=== PATIENT | female | born 1990 | race Caucasian/White ===

== ENCOUNTER 2017-09-30 14:53 | Inpatient (IN) | payer OTHER ==
[2017-09-30 15:41] VITALS: BMI 28.8
--- NOTE | 2017-09-30 16:59 | HP ---
COWS - Scale Resting Pulse: 2= [place] 101-120 Sweatin= Chills/Flushing Restless Observation: 1= Difficult to Sit Still Pupil Size: 0= Normal to Room Light Bone or Joint Aches: 1= Mild Discomfort Runny Nose/ Eye Tearin= Nasal Congestion GI Upset > 30mins: 1= Stomach Cramp Tremor Observation: 2= Slight Tremor Visible Yawning Observation: 0= None Anxiety or Irritability: 2=Irritable/Anxious Goose Flesh Skin: 3=Piloerection COWS Score: 14 Admission ROS S - HPI Chief Complaint: withdrawal sx first detox Allergies/Adverse Reactions: Allergies Allergy/AdvReac Type Severity Reaction Status Date / Time No Known Allergies Allergy Verified 09/30/17 16:53 History of Present Illness: 27 years old female with long history of opiate nicotine dependence has depression is admitted to detox Exam Limitations: No Limitations - Ebola screening Have you traveled outside of the country in the last 21 days: No Have you had contact with anyone from an Ebola affected area: No Have you been sick,other than usual withdrawal symptoms: No Do you have a fever: No - Review of Systems Constitutional: Changes in sleep, Weight Stable EENT: reports: Nose Congestion Respiratory: reports: No Symptoms reported Cardiac: reports: No Symptoms Reported GI: reports: Nausea, Poor Fluid Intake, Abdominal cramping : reports: No Symptoms Reported Musculoskeletal: reports: No Symptoms Reported Integumentary: reports: No Symptoms Reported Neuro: reports: Tremors Endocrine: reports: No Symptoms Reported Hematology: reports: No Symptoms Reported Psychiatric: reports: Judgement Intact, Orientated x3, Anxious, Depressed Other Systems: Reviewed and Negative Patient History - Patient Medical History Hx Anemia: No Hx Asthma: No Hx Chronic Obstructive Pulmonary Disease (COPD): No Hx Cancer: No Hx Cardiac Disorders: No Hx Congestive Heart Failure: No Hx Hypertension: No Hx Hypercholesterolemia: No Hx Pacemaker: No HX Cerebrovascular Accident: No Hx Seizures: No Hx Dementia: No Hx Diabetes: No Hx Gastrointestinal Disorders: No Hx Sexually Transmitted Disorders: No Hx Renal Disease (ESRD): No Hx Thyroid Disease: No Hx Human Immunodeficiency Virus (HIV): No Hx Hepatitis C: No Hx Depression: Yes Hx Suicide Attempt: No Hx Bipolar Disorder: No Hx Schizophrenia: No - Patient Surgical History Past Surgical History: Yes Hx Neurologic Surgery: No Hx Cataract Extraction: No Hx Cardiac Surgery: No Hx Lung Surgery: No Hx Breast Surgery: No Hx Breast Biopsy: No Hx Abdominal Surgery: Yes (gastric bypass 2006) Hx Appendectomy: No Hx Cholecystectomy: Yes (2011) Hx Genitourinary Surgery: No Hx Section: No Hx Orthopedic Surgery: No Hx Hysterectomy: No Other Surgical History: tuberligation 2011 Anesthesia Reaction: No - PPD History Previous Implant?: Yes Documented Results: Negative w/o proof Implanted On Prior [facility] Admission?: No PPD to be Administered?: Yes - Reproductive History Patient is a Female of Child Bearing Age (11 -55 yrs old): Yes Last Menstrual Period: 09/11/17 Patient : No - Smoking Cessation Smoking history: Current every day smoker Have you smoked in the past 12 months: Yes Aproximately how many cigarettes per day: 10 Cigars Per Day: 0 Hx Chewing Tobacco Use: No Initiated information on smoking cessation: Yes 'Breaking Loose' booklet given: 09/30/17 - Substance & Tx. History Hx Alcohol Use: No Hx Substance Use: Yes Substance Use Type: Opiates, Tranquilizers Hx Substance Use Treatment: No (first detox) - Substances Abused Oxycontin Route: Oral Family Disease History - Family Disease History Family Disease History: Diabetes: Mother, Heart Disease: Father Admission Physical Exam BHS - Vital Signs Vital Signs: Vital Signs - 24 hr 09/30/17 15:36 Temperature 98.8 F Pulse Rate 110 H Respiratory 18 Rate Blood Pressure 136/96 - Physical General Appearance: Yes: Appropriately Dressed, Mild Distress, Obese, Tremorous , Irritable, Sweating, Anxious HEENTM: Yes: Hearing grossly Normal, Normal ENT Inspection, Normocephalic, Normal Voice Respiratory: Yes: Chest Non-Tender, Lungs Clear, Normal Breath Sounds, No Respiratory Distress, No Accessory Muscle Use Neck: Yes: Supple, Trachea in good position Breast: Yes: Breasts Symetrical Cardiology: Yes: Regular Rhythm, S1, S2, Tachycardia Abdominal: Yes: Normal Bowel Sounds, Non Tender, Soft Genitourinary: Yes: Within Normal Limits Back: Yes: Normal Inspection Musculoskeletal: Yes: full range of Motion, Gait Steady Extremities: Yes: Normal Inspection, Normal Range of Motion, Non-Tender, Tremors Neurological: Yes: Fully Oriented, Alert, Motor Strength 5/5, Normal Response, Depressed Affect Integumentary: Yes: Warm Lymphatic: Yes: Within Normal Limits - Diagnostic (1) Opioid dependence with withdrawal Current Visit: Yes Status: Acute (2) Nicotine dependence Current Visit: Yes Status: Acute Qualifiers: Nicotine product type: cigarettes Substance use status: in withdrawal Qualified Code(s): F17.213 - Nicotine dependence, cigarettes, with withdrawal (3) GERD (gastroesophageal reflux disease) Current Visit: Yes Status: Chronic Qualifiers: Esophagitis presence: without esophagitis Qualified Code(s): K21.9 - Gastro -esophageal reflux disease without esophagitis Cleared for Admission [facility] - Detox or Rehab [facility] Level of Care: Medically Managed Detox Regimen/Protocol: Methadone [facility] Breath Alcohol Content Breath Alcohol Content: 0 Urine Pregancy Test - Result Urine Test Results: Negative- NO Line Present Urine Drug Screen - Results Drug Screen Negative: No Urine Drug Screen Results: BZO-Benzodiazepines, TCA-Tricyclic Antidepress, OXY- Oxycodone
[2017-09-30] MEDS ORDERED: MAGNESIUM CITRATE 300 ML BOTTLE PO PRN (17:12)
[2017-09-30] MEDS ORDERED: MENTHOL/PHENOL 1 EACH UD MM PRN (17:12)
[2017-09-30] MEDS ORDERED: MAG HYDROX/AL HYDROX/SIMETH 30 ML UNIT-DOSE CUP PO PRN (17:12)
[2017-09-30] MEDS ORDERED: guaiFENesin/D-METHORPHAN HB 10 ML UNIT-DOSE CUPS PO PRN (17:12)
[2017-09-30] MEDS ORDERED: NICOTINE POLACRILEX 2 MG GUM BC PRN (17:12)
[2017-09-30] MEDS ORDERED: IBUPROFEN 400 MG TABLET (FP) PO PRN (17:12)
[2017-09-30] MEDS ORDERED: P-EPHED 60MG/TRIPROLIDI 2.5MG TABLET PO PRN (17:12)
[2017-09-30] MEDS ORDERED: MAGNESIUM HYDROX 2400MG/30ML ORAL SUSPENSION 30 ML CUP PO PRN (17:12)
[2017-09-30] MEDS ORDERED: LOPERAMIDE HCL 2 MG CAPSULE PO PRN (17:12)
[2017-09-30] MEDS ORDERED: METHADONE HCL 10 MG TABLET (FOR DETOX USE ONLY) PO ONE ×2 (19:00→23:00)
[2017-09-30] MEDS: cloNIDine HCL 0.1 MG TABLET PO PRN (19:35)
[2017-09-30] MEDS: diazePAM 5 MG TABLET PO PRN ×2 (19:35→23:34)
[2017-09-30] MEDS: ACETAMINOPHEN 325 MG TABLET (FP) PO PRN (20:34)
--- NOTE | 2017-09-30 20:52 | EKG ---
Test Reason : Blood Pressure : / mmHG Vent. Rate : 086 BPM Atrial Rate : 086 BPM P-R Int : 154 ms QRS Dur : 078 ms QT Int : 360 ms P-R-T Axes : 059 069 032 degrees QTc Int : 430 ms NORMAL SINUS RHYTHM POSSIBLE LEFT ATRIAL ENLARGEMENT BORDERLINE ECG NO PREVIOUS ECGS AVAILABLE Confirmed by MD JACLYN, ZAYDA ([id number]) on 09/30/2017 8:51:37 PM Referred By: Confirmed By:ZAYDA ANAYA MD
[2017-09-30] MEDS: THIAMINE HCL 100 MG TABLET (FP) PO SCH (22:20)
[2017-09-30] MEDS: RANITIDINE HCL 150 MG TABLET (FP) PO SCH (22:20)
[2017-09-30] MEDS ORDERED: hydrOXYzine PAMOATE 25 MG CAPSULE (FP) PO ONE (22:24)
[2017-10-01 01:32] LABS: URINE APPEARANCE CLOUDY; URINE BILIRUBIN NEGATIVE (NEGATIVE); URINE BLOOD NEGATIVE (NEGATIVE); URINE GLUCOSE (UA) NEGATIVE (NEGATIVE); URINE KETONE 1+ (NEGATIVE); URINE LEUK ESTERASE NEGATIVE (NEGATIVE); URINE NITRITE NEGATIVE (NEGATIVE)
[2017-10-01 01:45] LABS: URINE PROTEIN 1+ (NEGATIVE)
[2017-10-01 01:46] LABS: URINE COLOR YELLOW
[2017-10-01 01:56] LABS: URINE HYALINE CAST 2 /lpf; URINE MUCUS MANY; URINE RBC 24 /hpf (0-3); URINE WBC 3 /hpf (3-5)
[2017-10-01] MEDS: diazePAM 5 MG TABLET PO PRN ×3 (05:40→22:17)
--- NOTE | 2017-10-01 07:31 | CONSULT ---
[facility] Psychiatric Consult - Data Date of interview: 10/01/17 Admission source: [facility] Identifying data: This is 27 years old female with history of psychiatriuc hospitalization iontoxicated with: Opioids and Nicotine Substance Abuse History: - Smoking Cessation. Smoking history: Current every day smoker. Have you smoked in the past 12 months: Yes. Aproximately how many cigarettes per day: 10. Cigars Per Day: 0. Hx Chewing Tobacco Use: No. Initiated information on smoking cessation: Yes. 'Breaking Loose' booklet given : 09/30/17. - Substance & Tx. History. Hx Alcohol Use: No. Hx Substance Use: Yes. Substance Use Type: Opiates, Tranquilizers. Hx Substance Use Treatment: No (first detox). - Substances Abused. Oxycontin. Route: Oral Medical History: GERD Psychiatric History: Patient reports history of depression and anxiety, reports taking prior to admission: Zoloft 100mg po qhs. Wellbutrin XL 300mg poqd Physical/Sexual Abuse/Trauma History: Denies Additional Comment: Zoloft 100mg po qhs. Wellbutrin XL 300mg poqd Mental Status Exam - Mental Status Exam Alert and Oriented to: Person Cognitive Function: Fair Patient Appearance: Unkempt Mood: Anxious Affect: Mood Congruent Patient Behavior: Cooperative Voice Loudness: Mildly Soft/Quiet Thought Process: Circumstantial, Goal Oriented Thought Disorder: Being Controlled Hallucinations: Denies Suicidal Ideation: Denies Homicidal Ideation: Denies Insight/Judgement: Fair Sleep: Difficulty falling asleep Appetite: Weight gain Muscle strength/Tone: Normal Gait/Station: Shuffling Additional Comments: Zoloft 100mg po qhs. Wellbutrin XL 300mg poqd Psychiatric Findings - Problem List ([place] 1, 2,3) (1) Drug-induced mood disorder Current Visit: Yes Status: Acute (2) Nicotine dependence Current Visit: Yes Status: Acute Qualifiers: Nicotine product type: cigarettes Substance use status: in withdrawal Qualified Code(s): F17.213 - Nicotine dependence, cigarettes, with withdrawal (3) Opioid dependence with withdrawal Current Visit: Yes Status: Acute (4) GERD (gastroesophageal reflux disease) Current Visit: Yes Status: Chronic Qualifiers: Esophagitis presence: without esophagitis Qualified Code(s): K21.9 - Gastro -esophageal reflux disease without esophagitis - Initial Treatment Plan Initial Treatment Plan: Zoloft 100mg po qhs. Wellbutrin XL 300mg poqd. [id number] 100mg po stat
[2017-10-01] MEDS ORDERED: SERTRALINE HCL 50 MG TABLET (FP) PO STA (08:02)
[2017-10-01 09:03] LABS: URINE LEUK ESTERASE Negative (NEGATIVE)
[2017-10-01] MEDS ORDERED: METHADONE HCL 10 MG TABLET (FOR DETOX USE ONLY) PO ONE (10:00)
[2017-10-01 10:05] LABS: MCH 28.1 pg (25.7-33.7); MCHC 31.8 g/dl (32.0-36.0); MEAN CELL VOLUME 88.2 fl (80-96); PLATELET COUNT 388 K/MM3 (134-434); RDW 15.5 % (11.6-15.6); WHITE BLOOD COUNT 5.8 K/mm3 (4.0-10.0)
--- NOTE | 2017-10-01 10:19 | PN ---
BHS COWS - Scale Resting Pulse: 0= [place] 80 or Below Sweatin=Flushed/Facial Moisture Restless Observation: 1= Difficult to Sit Still Pupil Size: 1= Pupils >than Normal Bone or Joint Aches: 1= Mild Discomfort Runny Nose/ Eye Tearin= Nasal Congestion GI Upset > 30mins: 1= Stomach Cramp Tremor Observation of Outstretched Hands: 1= Tremor Moosic, Not Seen Yawning Observation: 1= 1-2x During Session Anxiety or Irritability: 2=Irritable/Anxious Goose Flesh Skin: 0=Smooth Skin COWS Score: 11 BHS Progress Note (SOAP) Subjective: interrupted sleep, sweats, anxiety Objective: 10/01/17 10:16 Vital Signs Temperature 98.2 F 10/01/17 06:05 Pulse Rate 61 10/01/17 06:05 Respiratory Rate 16 10/01/17 06:05 Blood Pressure 124/70 10/01/17 06:05 O2 Sat by Pulse Oximetry (%) Laboratory Tests 09/30/17 10/01/17 23:40 07:00 WBC 5.8 RBC 4.14 Hgb 11.6 Hct 36.5 MCV 88.2 MCH 28.1 MCHC 31.8 L RDW 15.5 Plt Count 388 MPV 8.0 Urine Color Yellow Urine Appearance Cloudy Urine pH 5.0 Ur Specific [place] 1.029 Urine Protein 1+ H Urine Glucose (UA) Negative Urine Ketones 1+ H Urine Blood Negative Urine Nitrite Negative Urine Bilirubin Negative Urine Urobilinogen 2.0 H Ur Leukocyte Esterase Negative Urine WBC (Auto) 3 Urine RBC (Auto) 24 Ur Epithelial Cells Many Hyaline Casts 2 Urine Mucus Many pt aox3 in nad ambulating , anxious Assessment: 10/01/17 10:19 withdrawal sx's Plan: cont. detox increase fluids reassurance
[2017-10-01] MEDS: RANITIDINE HCL 150 MG TABLET (FP) PO SCH ×2 (10:28→22:17)
[2017-10-01] MEDS: PRENATAL VITAMINS W/ FOLIC ACID TABLET (FP) PO SCH (10:28)
[2017-10-01] MEDS: NICOTINE 14 MG/24 HOURS TOPICAL PATCH TD SCH (10:29)
[2017-10-01 10:32] LABS: ALBUMIN 3.3 g/dl (3.4-5.0); ALK PHOS 151 U/L (45-117); ANION GAP 10 (8-16); BILIRUBIN,TOTAL 0.8 mg/dL (0.2-1.0); CO2 23 mmol/L (21-32); CREATININE 0.7 mg/dL (0.55-1.02); GLUCOSE,RANDOM 83 mg/dL (74-106); SGOT/AST 13 U/L (15-37); SGPT/ALT 33 U/L (12-78); TOT PROT 6.8 g/dl (6.4-8.2)
[2017-10-01] MEDS ORDERED: diazePAM 5 MG TABLET PO ONE (12:02)
[2017-10-01 12:20] LABS: HIV 1 & 2 AB NEGATIVE; HIV 1 AGp24 NEGATIVE
[2017-10-01] MEDS: SERTRALINE HCL 50 MG TABLET (FP) PO SCH (22:16)
[2017-10-01] MEDS: THIAMINE HCL 100 MG TABLET (FP) PO SCH (22:17)
[2017-10-01] MEDS: cloNIDine HCL 0.1 MG TABLET PO PRN (22:17)
[2017-10-02] MEDS ORDERED: METHADONE HCL 5 MG TABLET (FOR DETOX USE ONLY) PO ONE (10:00)
[2017-10-02] MEDS: RANITIDINE HCL 150 MG TABLET (FP) PO SCH ×2 (10:18→22:24)
[2017-10-02] MEDS: PRENATAL VITAMINS W/ FOLIC ACID TABLET (FP) PO SCH (10:18)
[2017-10-02] MEDS: NICOTINE 14 MG/24 HOURS TOPICAL PATCH TD SCH (10:18)
--- NOTE | 2017-10-02 10:50 | PN ---
S COWS - Scale Resting Pulse: 1= [place] 81-100 Sweatin= Chills/Flushing Restless Observation: 1= Difficult to Sit Still Pupil Size: 1= Pupils >than Normal Bone or Joint Aches: 1= Mild Discomfort Runny Nose/ Eye Tearin= Nasal Congestion GI Upset > 30mins: 2= Nausea/Diarrhea Tremor Observation of Outstretched Hands: 2= Slight Tremor Visible Yawning Observation: 1= 1-2x During Session Anxiety or Irritability: 2=Irritable/Anxious Goose Flesh Skin: 3=Piloerection COWS Score: 16 BHS Progress Note (SOAP) Subjective: nausea, sweats, interrupted sleep, anxiety, tremors Objective: 10/02/17 10:49 Vital Signs - 24 hr 10/01/17 10/01/17 10/01/17 11:03 13:06 16:51 Temperature 97.9 F 98.1 F 98.1 F Pulse Rate 112 H 108 H 77 Respiratory 18 16 20 Rate Blood Pressure 130/89 127/69 104/61 10/01/17 10/02/17 10/02/17 22:04 00:30 03:30 Temperature 98.4 F Pulse Rate 96 H Respiratory 18 18 18 Rate Blood Pressure 122/85 10/02/17 10/02/17 06:19 09:21 Temperature 97.9 F 97.7 F Pulse Rate 75 85 Respiratory 18 18 Rate Blood Pressure 97/56 110/61 Laboratory Tests 09/30/17 10/01/17 10/01/17 23:40 07:00 07:00 WBC 5.8 RBC 4.14 Hgb 11.6 Hct 36.5 MCV 88.2 MCH 28.1 MCHC 31.8 L RDW 15.5 Plt Count 388 MPV 8.0 Sodium 142 Potassium 3.9 Chloride 109 H Carbon Dioxide 23 Anion Gap 10 BUN 10 Creatinine 0.7 Creat Clearance w eGFR > 60 Random Glucose 83 Calcium 9.0 Total Bilirubin 0.8 AST 13 L ALT 33 Alkaline Phosphatase 151 H Total Protein 6.8 Albumin 3.3 L Urine Color Yellow Urine Appearance Cloudy Urine pH 5.0 Ur Specific [place] 1.029 Urine Protein 1+ H Urine Glucose (UA) Negative Urine Ketones 1+ H Urine Blood Negative Urine Nitrite Negative Urine Bilirubin Negative Urine Urobilinogen 2.0 H Ur Leukocyte Esterase Negative Urine WBC (Auto) 3 Urine RBC (Auto) 24 Ur Epithelial Cells Many Hyaline Casts 2 Urine Mucus Many RPR Titer HIV 1&2 Antibody Screen HIV P24 Antigen 10/01/17 10/01/17 07:00 08:00 WBC RBC Hgb Hct MCV MCH MCHC RDW Plt Count MPV Sodium Potassium Chloride Carbon Dioxide Anion Gap BUN Creatinine Creat Clearance w eGFR Random Glucose Calcium Total Bilirubin AST ALT Alkaline Phosphatase Total Protein Albumin Urine Color Urine Appearance Urine pH Ur Specific [place] Urine Protein Urine Glucose (UA) Urine Ketones Urine Blood Urine Nitrite Urine Bilirubin Urine Urobilinogen Ur Leukocyte Esterase Urine WBC (Auto) Urine RBC (Auto) Ur Epithelial Cells Hyaline Casts Urine Mucus RPR Titer Nonreactive HIV 1&2 Antibody Screen Negative HIV P24 Antigen Negative Assessment: 10/02/17 10:49 withdrawal sx - cont detox, fluids, low alb/malnutirtiion 2/2 substance use dietary counseling provided with review of labs
[2017-10-02] MEDS: diazePAM 5 MG TABLET PO PRN ×3 (12:06→21:10)
[2017-10-02] MEDS: cloNIDine HCL 0.1 MG TABLET PO PRN (21:10)
[2017-10-02] MEDS: THIAMINE HCL 100 MG TABLET (FP) PO SCH (22:23)
[2017-10-02] MEDS: SERTRALINE HCL 50 MG TABLET (FP) PO SCH (22:24)
[2017-10-03] MEDS: diazePAM 5 MG TABLET PO PRN ×3 (02:14→14:24)
[2017-10-03] MEDS: ACETAMINOPHEN 325 MG TABLET (FP) PO PRN (02:14)
[2017-10-03] MEDS ORDERED: LIDOCAINE VISCOUS 2% ORAL/TOP 20 ML UNIT-DOSE CUP MM PRN (02:22)
[2017-10-03] MEDS ORDERED: METHADONE HCL 5 MG TABLET (FOR DETOX USE ONLY) PO ONE (10:00)
[2017-10-03] MEDS: PRENATAL VITAMINS W/ FOLIC ACID TABLET (FP) PO SCH (10:26)
[2017-10-03] MEDS: RANITIDINE HCL 150 MG TABLET (FP) PO SCH ×2 (10:26→22:22)
[2017-10-03] MEDS: NICOTINE 14 MG/24 HOURS TOPICAL PATCH TD SCH (10:27)
--- NOTE | 2017-10-03 10:50 | PN ---
BHS Progress Note (SOAP) Subjective: sweats irritable agitation Objective: 10/03/17 10:50 Vital Signs Temperature 98.1 F 10/03/17 09:58 Pulse Rate 66 10/03/17 09:58 Respiratory Rate 18 10/03/17 09:58 Blood Pressure 111/67 10/03/17 09:58 O2 Sat by Pulse Oximetry (%) aaox3 ambulating no acute distress Assessment: 10/03/17 10:50 withdrawal sx Plan: continue detox
[2017-10-03] MEDS: THIAMINE HCL 100 MG TABLET (FP) PO SCH (22:21)
[2017-10-03] MEDS: SERTRALINE HCL 50 MG TABLET (FP) PO SCH (22:21)
[2017-10-04] MEDS ORDERED: METHADONE HCL 10 MG TABLET (FOR DETOX USE ONLY) PO ONE (10:00)
[2017-10-04] MEDS: PRENATAL VITAMINS W/ FOLIC ACID TABLET (FP) PO SCH (10:26)
[2017-10-04] MEDS: NICOTINE 14 MG/24 HOURS TOPICAL PATCH TD SCH (10:26)
[2017-10-04] MEDS: RANITIDINE HCL 150 MG TABLET (FP) PO SCH ×2 (10:26→22:31)
[2017-10-04] MEDS: IBUPROFEN 600 MG TABLET (FP) PO PRN ×2 (12:04→18:22)
[2017-10-04] MEDS: ACETAMINOPHEN 325 MG TABLET (FP) PO PRN ×2 (14:07→21:21)
[2017-10-04] MEDS ORDERED: hydrOXYzine PAMOATE 50 MG CAPSULE (FP) PO PRN (15:20)
--- NOTE | 2017-10-04 15:27 | PN ---
BHS Progress Note (SOAP) Subjective: C/O feeling anxious,restless,sweating,interrupted sleep Objective: 10/04/17 15:23 Last Vital Signs Temp Pulse Resp BP Pulse Ox 98.2 F 66 16 105/64 10/04/17 06:05 10/04/17 06:05 10/04/17 06:05 10/04/17 06:05 Laboratory Tests 09/30/17 10/01/17 10/01/17 23:40 07:00 07:00 WBC 5.8 RBC 4.14 Hgb 11.6 Hct 36.5 MCV 88.2 MCH 28.1 MCHC 31.8 L RDW 15.5 Plt Count 388 MPV 8.0 Sodium 142 Potassium 3.9 Chloride 109 H Carbon Dioxide 23 Anion Gap 10 BUN 10 Creatinine 0.7 Creat Clearance w eGFR > 60 Random Glucose 83 Calcium 9.0 Total Bilirubin 0.8 AST 13 L ALT 33 Alkaline Phosphatase 151 H Total Protein 6.8 Albumin 3.3 L Urine Color Yellow Urine Appearance Cloudy Urine pH 5.0 Ur Specific [place] 1.029 Urine Protein 1+ H Urine Glucose (UA) Negative Urine Ketones 1+ H Urine Blood Negative Urine Nitrite Negative Urine Bilirubin Negative Urine Urobilinogen 2.0 H Ur Leukocyte Esterase Negative Urine WBC (Auto) 3 Urine RBC (Auto) 24 Ur Epithelial Cells Many Hyaline Casts 2 Urine Mucus Many RPR Titer HIV 1&2 Antibody Screen HIV P24 Antigen 10/01/17 10/01/17 07:00 08:00 WBC RBC Hgb Hct MCV MCH MCHC RDW Plt Count MPV Sodium Potassium Chloride Carbon Dioxide Anion Gap BUN Creatinine Creat Clearance w eGFR Random Glucose Calcium Total Bilirubin AST ALT Alkaline Phosphatase Total Protein Albumin Urine Color Urine Appearance Urine pH Ur Specific [place] Urine Protein Urine Glucose (UA) Urine Ketones Urine Blood Urine Nitrite Urine Bilirubin Urine Urobilinogen Ur Leukocyte Esterase Urine WBC (Auto) Urine RBC (Auto) Ur Epithelial Cells Hyaline Casts Urine Mucus RPR Titer Nonreactive HIV 1&2 Antibody Screen Negative HIV P24 Antigen Negative labs noted Assessment: 10/04/17 15:24 Withdrawal sx. Plan: Continue detox
[2017-10-04] MEDS: SERTRALINE HCL 50 MG TABLET (FP) PO SCH (22:31)
[2017-10-04] MEDS: THIAMINE HCL 100 MG TABLET (FP) PO SCH (22:32)
[2017-10-05] MEDS: IBUPROFEN 600 MG TABLET (FP) PO PRN ×2 (01:23→09:07)
[2017-10-05] MEDS: ACETAMINOPHEN 325 MG TABLET (FP) PO PRN (05:14)
[2017-10-05] MEDS ORDERED: METHADONE HCL 5 MG TABLET (FOR DETOX USE ONLY) PO ONE (06:00)
[2017-10-05 06:53] VITALS: BP 105/51; PULSE 62; TEMP 98.1
--- NOTE | 2017-10-05 08:54 | DS ---
[facility] Detox Discharge Summary Admission Date: 09/30/17 Discharge Date: 10/05/17 - History Present History: Opioid Dependence Pertinent Past History: GERD - Physical Exam Results Vital Signs: Vital Signs Temperature 98.1 F 10/05/17 06:52 Pulse Rate 62 10/05/17 06:52 Respiratory Rate 16 10/05/17 06:52 Blood Pressure 105/51 10/05/17 06:52 O2 Sat by Pulse Oximetry (%) Pertinent Admission Physical Exam Findings: Withdrawal sx. Laboratory Tests 09/30/17 10/01/17 10/01/17 23:40 07:00 07:00 WBC 5.8 RBC 4.14 Hgb 11.6 Hct 36.5 MCV 88.2 MCH 28.1 MCHC 31.8 L RDW 15.5 Plt Count 388 MPV 8.0 Sodium 142 Potassium 3.9 Chloride 109 H Carbon Dioxide 23 Anion Gap 10 BUN 10 Creatinine 0.7 Creat Clearance w eGFR > 60 Random Glucose 83 Calcium 9.0 Total Bilirubin 0.8 AST 13 L ALT 33 Alkaline Phosphatase 151 H Total Protein 6.8 Albumin 3.3 L Urine Color Yellow Urine Appearance Cloudy Urine pH 5.0 Ur Specific [place] 1.029 Urine Protein 1+ H Urine Glucose (UA) Negative Urine Ketones 1+ H Urine Blood Negative Urine Nitrite Negative Urine Bilirubin Negative Urine Urobilinogen 2.0 H Ur Leukocyte Esterase Negative Urine WBC (Auto) 3 Urine RBC (Auto) 24 Ur Epithelial Cells Many Hyaline Casts 2 Urine Mucus Many RPR Titer HIV 1&2 Antibody Screen HIV P24 Antigen 10/01/17 10/01/17 07:00 08:00 WBC RBC Hgb Hct MCV MCH MCHC RDW Plt Count MPV Sodium Potassium Chloride Carbon Dioxide Anion Gap BUN Creatinine Creat Clearance w eGFR Random Glucose Calcium Total Bilirubin AST ALT Alkaline Phosphatase Total Protein Albumin Urine Color Urine Appearance Urine pH Ur Specific [place] Urine Protein Urine Glucose (UA) Urine Ketones Urine Blood Urine Nitrite Urine Bilirubin Urine Urobilinogen Ur Leukocyte Esterase Urine WBC (Auto) Urine RBC (Auto) Ur Epithelial Cells Hyaline Casts Urine Mucus RPR Titer Nonreactive HIV 1&2 Antibody Screen Negative HIV P24 Antigen Negative labs noted - Treatment Hospital Course: Detox Protocol Followed, Detoxed Safely, Responded well, Discharged Condition Good, Rehab Referral Accepted Patient has Accepted a Rehab Referral to: [facility] - Medication Discharge Medications: Ambulatory Orders Alprazolam [Xanax] 0.5 mg PO BID PRN 09/30/17 Bupropion HCl [Bupropion Xl] 300 mg PO AM 09/30/17 Oxycodone HCl/Acetaminophen [Percocet 10-325 mg Tablet] 1 each PO Q4H PRN Sertraline HCl [Zoloft] 100 mg PO HS 09/30/17 Bupropion HCl [Wellbutrin Xl -] 300 mg PO DAILY #30 tab.sr.24h 10/01/17 Sertraline HCl [Zoloft] 100 mg PO HS #30 tablet 10/01/17 - Diagnosis (1) Opioid dependence with withdrawal Current Visit: Yes Status: Chronic (2) Drug-induced mood disorder Current Visit: Yes Status: Acute (3) GERD (gastroesophageal reflux disease) Current Visit: Yes Status: Chronic Qualifiers: Esophagitis presence: without esophagitis Qualified Code(s): K21.9 - Gastro -esophageal reflux disease without esophagitis (4) Nicotine dependence Current Visit: Yes Status: Chronic Qualifiers: Nicotine product type: cigarettes Substance use status: uncomplicated Qualified Code(s): F17.210 - Nicotine dependence, cigarettes, uncomplicated - AMA Did Patient Leave Against Medical Advice: No
[2017-10-05] MEDS: NICOTINE 14 MG/24 HOURS TOPICAL PATCH TD SCH (10:13)
[2017-10-05] MEDS: RANITIDINE HCL 150 MG TABLET (FP) PO SCH (10:15)
[2017-10-05] MEDS: PRENATAL VITAMINS W/ FOLIC ACID TABLET (FP) PO SCH (10:15)
== END 2017-10-05 10:26 | disposition other institution (70) | DRG 773 ==
LOC: YASAS 14:53 → Y6N 18:11
PROVIDERS: ADMIT Internal Medicine; ATTEND Internal Medicine
PROC: HZ2ZZZZ Detoxification Services for Substance Abuse Treatment (ICD-10-PCS; principal; 2017-09-30)
DX: F11.23 Opioid dependence with withdrawal (principal); F17.210 Nicotine dependence, cigarettes, uncomplicated; F19.24 Other psychoactive substance dependence with psychoactive substance-induced mood disorder; K21.9 Gastro-esophageal reflux disease without esophagitis; E66.9 Obesity, unspecified; Z68.28 Body mass index [BMI] 28.0-28.9, adult; Z98.84 Bariatric surgery status
CPT/HCPCS: 36415; 80053; 81003; 81015; 85027; 86593; 87389; 93005; 93010

== ENCOUNTER 2017-10-05 11:40 | Inpatient (IN) | payer OTHER ==
[2017-10-05] MEDS ORDERED: MAGNESIUM HYDROX 2400MG/30ML ORAL SUSPENSION 30 ML CUP PO PRN (12:25)
[2017-10-05] MEDS ORDERED: MAGNESIUM CITRATE 300 ML BOTTLE PO PRN (12:25)
[2017-10-05] MEDS ORDERED: guaiFENesin/D-METHORPHAN HB 10 ML UNIT-DOSE CUPS PO PRN (12:25)
[2017-10-05] MEDS ORDERED: MENTHOL/PHENOL 1 EACH UD MM PRN (12:25)
[2017-10-05] MEDS ORDERED: IBUPROFEN 400 MG TABLET (FP) PO PRN (12:25)
[2017-10-05] MEDS ORDERED: P-EPHED 60MG/TRIPROLIDI 2.5MG TABLET PO PRN (12:25)
--- NOTE | 2017-10-05 12:34 | HP ---
[facility] Re[facility] Assess/Revision - Admission History Admitted to Rehab from: [address] - Vital signs Vital Signs: Vital Signs Period Temp Pulse Resp BP Sys/Sneed Pulse Ox Last 24 Hr 98.0 F 78 18 124/84 - Findings Detox History & Physical reviewed: Yes Concur with findings: Yes Inpatient Rehab Admission - Initial Determination Are CD services needed?: Yes Free of communicable disease: Yes Not in need of hospitalization: Yes - Rehab Admission Criteria Previous failed treatment: Yes Poor recovery environment: Yes Comorbidities: Yes Lacks judgement: Yes Patient is meeting Inpatient Rehab admission criteria:: Yes
[2017-10-05] MEDS: ACETAMINOPHEN 325 MG TABLET (FP) PO PRN ×2 (12:57→21:45)
[2017-10-05] MEDS: IBUPROFEN 400 MG TABLET (FP) PO PRN (17:36)
[2017-10-05] MEDS: THIAMINE HCL 100 MG TABLET (FP) PO SCH (21:45)
[2017-10-05] MEDS: RANITIDINE HCL 150 MG TABLET (FP) PO SCH (21:45)
[2017-10-05] MEDS: SERTRALINE HCL 50 MG TABLET (FP) PO SCH (23:20)
[2017-10-06] MEDS: IBUPROFEN 400 MG TABLET (FP) PO PRN (01:31)
[2017-10-06] MEDS ORDERED: SERTRALINE HCL 50 MG TABLET (FP) PO SCH (10:00)
[2017-10-06] MEDS: RANITIDINE HCL 150 MG TABLET (FP) PO SCH ×2 (10:10→21:40)
[2017-10-06] MEDS: NICOTINE 21 MG/24 HOURS TOPICAL PATCH TD SCH (10:10)
[2017-10-06] MEDS: PRENATAL VITAMINS W/ FOLIC ACID TABLET (FP) PO SCH (10:10)
[2017-10-06] MEDS: ACETAMINOPHEN 325 MG TABLET (FP) PO PRN ×2 (11:29→17:34)
[2017-10-06] MEDS: hydrOXYzine PAMOATE 50 MG CAPSULE (FP) PO PRN ×2 (11:30→21:40)
[2017-10-06] MEDS: IBUPROFEN 600 MG TABLET (FP) PO PRN (15:59)
[2017-10-06] MEDS: THIAMINE HCL 100 MG TABLET (FP) PO SCH (21:40)
[2017-10-06] MEDS: SERTRALINE HCL 50 MG TABLET (FP) PO SCH (21:40)
[2017-10-07] MEDS: IBUPROFEN 600 MG TABLET (FP) PO PRN (01:02)
[2017-10-07] MEDS: RANITIDINE HCL 150 MG TABLET (FP) PO SCH ×2 (10:12→21:48)
[2017-10-07] MEDS: PRENATAL VITAMINS W/ FOLIC ACID TABLET (FP) PO SCH (10:12)
[2017-10-07] MEDS: NICOTINE 21 MG/24 HOURS TOPICAL PATCH TD SCH (10:12)
[2017-10-07] MEDS ORDERED: PT OWN MED DRAWER 7, Y5N ONE (15:15)
[2017-10-07] MEDS: hydrOXYzine PAMOATE 50 MG CAPSULE (FP) PO PRN ×2 (15:21→21:48)
[2017-10-07] MEDS: THIAMINE HCL 100 MG TABLET (FP) PO SCH (21:48)
[2017-10-07] MEDS: SERTRALINE HCL 50 MG TABLET (FP) PO SCH (21:49)
[2017-10-08] MEDS: ACETAMINOPHEN 325 MG TABLET (FP) PO PRN (00:52)
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
[2017-10-08] MEDS: NICOTINE 21 MG/24 HOURS TOPICAL PATCH TD SCH (10:27)
[2017-10-08] MEDS: PRENATAL VITAMINS W/ FOLIC ACID TABLET (FP) PO SCH (10:27)
[2017-10-08] MEDS: RANITIDINE HCL 150 MG TABLET (FP) PO SCH ×2 (10:27→21:54)
--- NOTE | 2017-10-08 11:20 | PN ---
BHS Progress Note (SOAP) Subjective: c/o protractted opioid withdrawal sx would like to start suboxone Objective: 10/08/17 11:19 Vital Signs - 8 hr 10/08/17 10/08/17 03:30 07:17 Temperature 97.8 F Pulse Rate 73 Respiratory 16 18 Rate Blood Pressure 104/73 labs reviewed Assessment: 10/08/17 11:20 start suboxone 2mg s/l daily will adjust dose upward when afterare appt scheduled. risks discussed norbert brown.
[2017-10-08] MEDS: NAPROXEN 500 MG TABLET (FP) PO SCH ×2 (11:29→21:55)
[2017-10-08] MEDS: PANTOPRAZOLE 40 MG TABLET (FP) PO SCH (11:29)
[2017-10-08] MEDS: cloNIDine HCL 0.1 MG TABLET PO SCH ×2 (11:29→21:54)
[2017-10-08] MEDS: BUPRENORPHINE/NALOXONE 2 MG/0.5 MG FILM PACKET SL SCH (11:30)
[2017-10-08] MEDS: MIRTAZAPINE 15 MG TABLET (FP) PO SCH (21:54)
[2017-10-08] MEDS: SERTRALINE HCL 50 MG TABLET (FP) PO SCH (21:54)
[2017-10-08] MEDS: hydrOXYzine PAMOATE 50 MG CAPSULE (FP) PO PRN (21:56)
[2017-10-08] MEDS: THIAMINE HCL 100 MG TABLET (FP) PO SCH (23:10)
[2017-10-09] MEDS: PRENATAL VITAMINS W/ FOLIC ACID TABLET (FP) PO SCH (10:47)
[2017-10-09] MEDS: NAPROXEN 500 MG TABLET (FP) PO SCH ×2 (10:47→21:57)
[2017-10-09] MEDS: BUPRENORPHINE/NALOXONE 2 MG/0.5 MG FILM PACKET SL SCH (10:47)
[2017-10-09] MEDS: RANITIDINE HCL 150 MG TABLET (FP) PO SCH ×2 (10:47→21:57)
[2017-10-09] MEDS: PANTOPRAZOLE 40 MG TABLET (FP) PO SCH (10:47)
[2017-10-09] MEDS: cloNIDine HCL 0.1 MG TABLET PO SCH ×2 (10:47→21:57)
[2017-10-09] MEDS: NICOTINE 21 MG/24 HOURS TOPICAL PATCH TD SCH (10:49)
[2017-10-09] MEDS ORDERED: BUPRENORPHINE/NALOXONE 2 MG/0.5 MG FILM PACKET SL SCH (13:55)
--- NOTE | 2017-10-09 17:33 | PN ---
BHS Progress Note (SOAP) Subjective: reports continued craving, merritt to use, would like to increase dose Objective: 10/09/17 17:32 Vital Signs - 8 hr 10/09/17 10:36 Pulse Rate 76 Blood Pressure 115/79 Assessment: 10/09/17 17:32 f/u [facility] in [place] when discharged , intake on phone tomorrow. will increase dose to 8mg daily, tolerated 6mg today with good effect
[2017-10-09] MEDS: SERTRALINE HCL 50 MG TABLET (FP) PO SCH (21:57)
[2017-10-09] MEDS: THIAMINE HCL 100 MG TABLET (FP) PO SCH (21:57)
[2017-10-09] MEDS: MIRTAZAPINE 15 MG TABLET (FP) PO SCH (21:57)
[2017-10-09] MEDS: hydrOXYzine PAMOATE 50 MG CAPSULE (FP) PO PRN (22:00)
[2017-10-10] MEDS: BUPRENORPHINE/NALOXONE 8 MG/2 MG FILM PACKET SL SCH ×2 (06:30→10:14)
[2017-10-10] MEDS: cloNIDine HCL 0.1 MG TABLET PO SCH ×2 (10:15→22:00)
[2017-10-10] MEDS: PANTOPRAZOLE 40 MG TABLET (FP) PO SCH (10:15)
[2017-10-10] MEDS: NAPROXEN 500 MG TABLET (FP) PO SCH ×2 (10:15→22:00)
[2017-10-10] MEDS: PRENATAL VITAMINS W/ FOLIC ACID TABLET (FP) PO SCH (10:15)
[2017-10-10] MEDS: NICOTINE 21 MG/24 HOURS TOPICAL PATCH TD SCH (10:15)
[2017-10-10] MEDS: RANITIDINE HCL 150 MG TABLET (FP) PO SCH ×2 (10:15→22:01)
--- NOTE | 2017-10-10 12:42 | PN ---
[facility] Progress Note Note: Patient requests to split dose. discussed with patient that dose at [facility] is given in a single dose and she can discuss with her provided as outpatient to split the dose. patient agreed to plan and will give current dose few days before considering an increase
[2017-10-10] MEDS: MAG HYDROX/AL HYDROX/SIMETH 30 ML UNIT-DOSE CUP PO PRN (17:28)
[2017-10-10] MEDS: MIRTAZAPINE 15 MG TABLET (FP) PO SCH (22:00)
[2017-10-10] MEDS: THIAMINE HCL 100 MG TABLET (FP) PO SCH (22:00)
[2017-10-10] MEDS: SERTRALINE HCL 50 MG TABLET (FP) PO SCH (22:00)
[2017-10-10] MEDS: hydrOXYzine PAMOATE 50 MG CAPSULE (FP) PO PRN (22:01)
[2017-10-11] MEDS: NAPROXEN 500 MG TABLET (FP) PO SCH ×2 (09:01→21:41)
[2017-10-11] MEDS: cloNIDine HCL 0.1 MG TABLET PO SCH ×2 (09:01→21:41)
[2017-10-11] MEDS: PRENATAL VITAMINS W/ FOLIC ACID TABLET (FP) PO SCH (09:01)
[2017-10-11] MEDS: PANTOPRAZOLE 40 MG TABLET (FP) PO SCH (09:01)
[2017-10-11] MEDS: BUPRENORPHINE/NALOXONE 8 MG/2 MG FILM PACKET SL SCH (09:02)
[2017-10-11] MEDS: NICOTINE 21 MG/24 HOURS TOPICAL PATCH TD SCH (09:02)
[2017-10-11] MEDS: RANITIDINE HCL 150 MG TABLET (FP) PO SCH ×2 (09:05→21:41)
[2017-10-11] MEDS: MIRTAZAPINE 15 MG TABLET (FP) PO SCH (21:41)
[2017-10-11] MEDS: THIAMINE HCL 100 MG TABLET (FP) PO SCH (21:41)
[2017-10-11] MEDS: SERTRALINE HCL 50 MG TABLET (FP) PO SCH (21:41)
[2017-10-11] MEDS: hydrOXYzine PAMOATE 50 MG CAPSULE (FP) PO PRN (21:42)
[2017-10-12] MEDS: BUPRENORPHINE/NALOXONE 8 MG/2 MG FILM PACKET SL SCH (06:21)
[2017-10-12] MEDS: NICOTINE POLACRILEX 2 MG GUM BUC PRN ×2 (07:37→10:32)
[2017-10-12] MEDS: NAPROXEN 500 MG TABLET (FP) PO SCH ×2 (10:31→21:35)
[2017-10-12] MEDS: PANTOPRAZOLE 40 MG TABLET (FP) PO SCH (10:31)
[2017-10-12] MEDS: PRENATAL VITAMINS W/ FOLIC ACID TABLET (FP) PO SCH (10:31)
[2017-10-12] MEDS: NICOTINE 21 MG/24 HOURS TOPICAL PATCH TD SCH (10:31)
[2017-10-12] MEDS: cloNIDine HCL 0.1 MG TABLET PO SCH ×2 (10:31→21:35)
[2017-10-12] MEDS: RANITIDINE HCL 150 MG TABLET (FP) PO SCH ×2 (10:31→21:35)
[2017-10-12] MEDS: SERTRALINE HCL 50 MG TABLET (FP) PO SCH (21:34)
[2017-10-12] MEDS: MIRTAZAPINE 15 MG TABLET (FP) PO SCH (21:34)
[2017-10-12] MEDS: THIAMINE HCL 100 MG TABLET (FP) PO SCH (21:35)
[2017-10-12] MEDS: hydrOXYzine PAMOATE 50 MG CAPSULE (FP) PO PRN (21:35)
[2017-10-13] MEDS: BUPRENORPHINE/NALOXONE 8 MG/2 MG FILM PACKET SL SCH (06:22)
[2017-10-13] MEDS: NICOTINE 21 MG/24 HOURS TOPICAL PATCH TD SCH (10:33)
[2017-10-13] MEDS: cloNIDine HCL 0.1 MG TABLET PO SCH ×2 (10:33→21:49)
[2017-10-13] MEDS: NAPROXEN 500 MG TABLET (FP) PO SCH ×2 (10:33→21:49)
[2017-10-13] MEDS: RANITIDINE HCL 150 MG TABLET (FP) PO SCH ×2 (10:33→21:50)
[2017-10-13] MEDS: PANTOPRAZOLE 40 MG TABLET (FP) PO SCH (10:34)
[2017-10-13] MEDS: PRENATAL VITAMINS W/ FOLIC ACID TABLET (FP) PO SCH (10:34)
[2017-10-13] MEDS: THIAMINE HCL 100 MG TABLET (FP) PO SCH (21:49)
[2017-10-13] MEDS: hydrOXYzine PAMOATE 50 MG CAPSULE (FP) PO PRN (21:49)
[2017-10-13] MEDS: MIRTAZAPINE 15 MG TABLET (FP) PO SCH (21:49)
[2017-10-13] MEDS: SERTRALINE HCL 50 MG TABLET (FP) PO SCH (21:49)
[2017-10-14] MEDS: BUPRENORPHINE/NALOXONE 8 MG/2 MG FILM PACKET SL SCH (06:15)
[2017-10-14] MEDS: MAG HYDROX/AL HYDROX/SIMETH 30 ML UNIT-DOSE CUP PO PRN (07:28)
[2017-10-14] MEDS: ACETAMINOPHEN 325 MG TABLET (FP) PO PRN (07:28)
[2017-10-14] MEDS: PRENATAL VITAMINS W/ FOLIC ACID TABLET (FP) PO SCH (10:23)
[2017-10-14] MEDS: cloNIDine HCL 0.1 MG TABLET PO SCH ×2 (10:23→21:49)
[2017-10-14] MEDS: NICOTINE 21 MG/24 HOURS TOPICAL PATCH TD SCH (10:24)
[2017-10-14] MEDS: NAPROXEN 500 MG TABLET (FP) PO SCH ×2 (10:24→21:47)
[2017-10-14] MEDS: RANITIDINE HCL 150 MG TABLET (FP) PO SCH ×2 (10:24→21:47)
[2017-10-14] MEDS: PANTOPRAZOLE 40 MG TABLET (FP) PO SCH (10:24)
--- NOTE | 2017-10-14 16:49 | PN ---
[facility] Progress Note (SOAP) Subjective: Patient seen for request to increase suboxone. As per patient, she was attending a suboxone clinic but she had stopped and she started suboxone here while admitted to [facility]. As per patient, she started at 2mg of suboxone and now at 8mg and requesting for it to be more frequent instead of daily. As per Dr. Brooke's note, to increase suboxone to 8mg daily and patient is already at 8mg daily. Patient is for discharge home tomorrow and is instructed to follow up with her suboxone provider to have suboxone adjusted. [employer] Sales Manager spoke with Dr. Brooke who will also look further into possibly increasing her dose. Objective: 10/14/17 16:47 Last Vital Signs Temp Pulse Resp BP Pulse Ox 97.4 F L 103 H 18 125/86 10/14/17 07:28 10/14/17 10:00 10/14/17 07:28 10/14/17 10:00 Laboratory Tests 10/10/17 07:30 Hepatitis C Antibody <0.1 Labs noted Assessment: 10/14/17 16:47 Patient with opioid dependence, now on suboxone therapy and requesting increase dose Plan: Opioid dependence: continue suboxone 8mg PO daily, follow up with suboxone provider post discharge to adjust therapy.
[2017-10-14] MEDS: THIAMINE HCL 100 MG TABLET (FP) PO SCH (21:47)
[2017-10-14] MEDS: hydrOXYzine PAMOATE 50 MG CAPSULE (FP) PO PRN (21:47)
[2017-10-14] MEDS: SERTRALINE HCL 50 MG TABLET (FP) PO SCH (21:47)
[2017-10-14] MEDS: MIRTAZAPINE 15 MG TABLET (FP) PO SCH (21:47)
[2017-10-15] MEDS: LOPERAMIDE HCL 2 MG CAPSULE PO PRN ×2 (00:27→09:12)
[2017-10-15] MEDS: BUPRENORPHINE/NALOXONE 8 MG/2 MG FILM PACKET SL SCH (05:45)
[2017-10-15] MEDS: PRENATAL VITAMINS W/ FOLIC ACID TABLET (FP) PO SCH (09:10)
[2017-10-15] MEDS: cloNIDine HCL 0.1 MG TABLET PO SCH (09:10)
[2017-10-15] MEDS: RANITIDINE HCL 150 MG TABLET (FP) PO SCH (09:11)
[2017-10-15] MEDS: NICOTINE 21 MG/24 HOURS TOPICAL PATCH TD SCH (09:11)
[2017-10-15] MEDS: PANTOPRAZOLE 40 MG TABLET (FP) PO SCH (09:11)
[2017-10-15] MEDS: NAPROXEN 500 MG TABLET (FP) PO SCH (09:11)
[2017-10-15] MEDS ORDERED: BUPRENORPHINE/NALOXONE 2 MG/0.5 MG FILM PACKET SL ONE (09:46)
[2017-10-15] MEDS ORDERED: BUPRENORPHINE HCL/NALOXONE 12 MG-3 MG SL FILM PACKET SL SCH (10:00)
--- NOTE | 2017-10-15 14:06 | PN ---
S Progress Note (SOAP) Subjective: Patient requesting increase dose of suboxone. As per patient, she is presently on 8mg and would like for the dose to be increased. Patient requesting to have naproxen, zantac, protonix and nicotine patch discontinued and wants clonidine to be prn for anxiety. As per patient, she is trying to stop taking too many drugs and that she is not experiencing anymore withdrawal symptoms. Objective: 10/15/17 14:06 Last Vital Signs Temp Pulse Resp BP Pulse Ox 97.9 F 102 H 18 125/90 10/15/17 07:35 10/15/17 09:45 10/15/17 07:35 10/15/17 09:45 Laboratory Tests 10/10/17 07:30 Hepatitis C Antibody <0.1 Labs noted Assessment: 10/15/17 14:06 Opioid dependence, started on suboxone Plan: Opioid dependence: suboxone increased to 12mg/3mg SL daily; follow up at [facility] post discharge until your appointment at [facility] as per Dr. Brooke. Medications d/c (nicotine patch, protonix, zantac, naproxen) as per patient request
--- NOTE | 2017-10-15 14:27 | PN ---
Psychiatric Progress Note Vital Signs: Vital Signs Period Temp Pulse Resp BP Sys/Sneed Pulse Ox Last 24 Hr 97.9 F 88-102 -18 110-125/72-90 Date of Session: 10/15/17 Chief Complaint:: Mello doing better,Mello less anxious. HPI: Patient addressed Opioid dependence comorbid with Substance induced mood disorder. Current Medications: Active Medications Generic Name Dose Route Start Last Admin Trade Name Freq PRN Reason Stop Dose Admin Acetaminophen 650 mg 10/05/17 12:25 10/14/17 07:28 Tylenol - PO 650 mg Q4H PRN Administration FEVER OR PAIN Al Hydroxide/Mg Hydroxide 30 ml 10/05/17 12:25 10/14/17 07:28 Mylanta Oral Suspension - PO 30 ml Q6H PRN Administration DYSPEPSIA Buprenorphine/Naloxone 1 each 10/16/17 10:00 Suboxone 12 Mg-3 Mg Sl Film SL 10/22/17 09:59 DAILY GABRIELE Bupropion HCl 300 mg 10/06/17 10:00 10/15/17 09:11 Wellbutrin Xl - PO 300 mg DAILY GABRIELE Administration Clonidine 0.1 mg 10/15/17 09:35 Catapres - PO Q8H PRN ANXIETY Eucalyptus/Menthol/Phenol/Sorbitol 1 each 10/05/17 12:25 Cepastat Lozenge - MM Q4H PRN SORE THROAT Guaifenesin 10 ml 10/05/17 12:25 Robitussin Dm - PO Q6H PRN COUGH Hydroxyzine Pamoate 50 mg 10/05/17 16:04 10/14/17 21:47 Vistaril - PO 50 mg Q4H PRN Administration ANXIETY Ibuprofen 600 mg 10/06/17 07:56 10/07/17 01:02 Motrin - PO 600 mg Q6H PRN Administration PAIN Loperamide HCl 4 mg 10/05/17 12:25 10/15/17 09:12 Imodium - PO 4 mg Q6H PRN Administration DIARRHEA Magnesium Citrate 300 ml 10/05/17 12:25 Citroma - PO Q48H PRN CONSTIPATION Magnesium Hydroxide 30 ml 10/05/17 12:25 Milk Of Magnesia - PO DAILY PRN CONSTIPATION Mirtazapine 15 mg 10/08/17 22:00 10/14/17 21:47 Remeron - PO 15 mg HS GABRIELE Administration Nicotine Polacrilex 2 mg 10/05/17 12:25 10/12/17 10:32 Nicorette Gum - BUC 2 mg Q2H PRN Administration NICOTINE REPLACEMENT RX Multivit/Folic Acid/Iron 1 tab 10/06/17 10:00 10/15/17 09:10 Vitamins (Sjr) - PO 1 tab DAILY GABRIELE Administration Pseudoephedrine/Triprolidine 1 combo 10/05/17 12:25 Actifed - PO TID PRN NASAL CONGESTION Sertraline HCl 25 mg 10/15/17 22:00 Zoloft - PO HS GABRIELE Thiamine HCl 100 mg 10/05/17 22:00 10/14/17 21:47 Vitamin B1 - PO 100 mg HS GABRIELE Administration Current Side Effect: No Lab tests ordered: No Lab tests reviewed: Yes Provider note:: Chart was revuewed ,patient was evaluated.Medications management has been discussed with the patient .She reports good response on current medications,staing that she is more stable and willing to taper off Zoloft 50 mg po daily to 25 mg po daily.Properties of Zoloft including side effects,benefits and dose adjustment has been discussed with the patient. Supportive therapy provided focusing on relapse prevention. Zoloft 50 mg po daily martha be adjusted to 25 mg . Total face to face time:: 30 Mental Status Exam - Mental Status Exam Alert and Oriented to: Time, Place, Person Cognitive Function: Grossly Intact Patient Appearance: Well Groomed Mood: Euthymic Affect: Mood Congruent, Labile Patient Behavior: Cooperative Speech Pattern: Clear Voice Loudness: Normal Thought Process: Goal Oriented Thought Disorder: Not Present Hallucinations: Denies Suicidal Ideation: Denies Homicidal Ideation: Denies Insight/Judgement: Fair Sleep: Fair Appetite: Good Muscle strength/Tone: Normal Gait/Station: Normal Psychiatric Treatment Plan - Problem List (1) Drug-induced mood disorder Current Visit: Yes (2) GERD (gastroesophageal reflux disease) Current Visit: Yes Qualifiers: (3) Nicotine dependence Current Visit: Yes Qualifiers: (4) Opioid dependence Current Visit: Yes
[2017-10-15] MEDS: cloNIDine HCL 0.1 MG TABLET PO PRN (21:38)
[2017-10-15] MEDS: hydrOXYzine PAMOATE 50 MG CAPSULE (FP) PO PRN (21:38)
[2017-10-15] MEDS: THIAMINE HCL 100 MG TABLET (FP) PO SCH (21:38)
[2017-10-15] MEDS: MIRTAZAPINE 15 MG TABLET (FP) PO SCH (21:38)
[2017-10-15] MEDS: SERTRALINE HCL 25 MG TABLET (FP) PO SCH (21:39)
[2017-10-16] MEDS: BUPRENORPHINE HCL/NALOXONE 12 MG-3 MG SL FILM PACKET SL SCH (06:13)
[2017-10-16] MEDS: MAG HYDROX/AL HYDROX/SIMETH 30 ML UNIT-DOSE CUP PO PRN (07:40)
[2017-10-16] MEDS ORDERED: BUPRENORPHINE HCL/NALOXONE 12 MG-3 MG SL FILM PACKET SL SCH (10:00)
[2017-10-16] MEDS: PRENATAL VITAMINS W/ FOLIC ACID TABLET (FP) PO SCH (10:18)
[2017-10-16] MEDS: cloNIDine HCL 0.1 MG TABLET PO PRN (17:24)
[2017-10-16] MEDS: hydrOXYzine PAMOATE 50 MG CAPSULE (FP) PO PRN (21:36)
[2017-10-16] MEDS: MIRTAZAPINE 15 MG TABLET (FP) PO SCH (21:36)
[2017-10-16] MEDS: THIAMINE HCL 100 MG TABLET (FP) PO SCH (21:36)
[2017-10-16] MEDS: SERTRALINE HCL 25 MG TABLET (FP) PO SCH (21:37)
[2017-10-16] MEDS ORDERED: PT OWN MED DRAWER 7, Y5N ONE (21:37)
[2017-10-17] MEDS: BUPRENORPHINE HCL/NALOXONE 12 MG-3 MG SL FILM PACKET SL SCH (06:37)
[2017-10-17] MEDS: NICOTINE POLACRILEX 2 MG GUM BUC PRN ×2 (07:56→12:23)
[2017-10-17] MEDS: PRENATAL VITAMINS W/ FOLIC ACID TABLET (FP) PO SCH (10:34)
[2017-10-17] MEDS: cloNIDine HCL 0.1 MG TABLET PO PRN ×2 (11:17→21:49)
[2017-10-17] MEDS: MIRTAZAPINE 15 MG TABLET (FP) PO SCH (21:49)
[2017-10-17] MEDS: THIAMINE HCL 100 MG TABLET (FP) PO SCH (21:49)
[2017-10-17] MEDS: SERTRALINE HCL 25 MG TABLET (FP) PO SCH (21:49)
[2017-10-17] MEDS: hydrOXYzine PAMOATE 50 MG CAPSULE (FP) PO PRN (21:49)
[2017-10-18] MEDS: BUPRENORPHINE HCL/NALOXONE 12 MG-3 MG SL FILM PACKET SL SCH (06:09)
[2017-10-18] MEDS: NICOTINE POLACRILEX 2 MG GUM BUC PRN ×3 (07:45→17:43)
[2017-10-18] MEDS: PRENATAL VITAMINS W/ FOLIC ACID TABLET (FP) PO SCH (10:23)
[2017-10-18] MEDS: cloNIDine HCL 0.1 MG TABLET PO PRN ×2 (10:27→21:48)
[2017-10-18] MEDS: hydrOXYzine PAMOATE 50 MG CAPSULE (FP) PO PRN (21:48)
[2017-10-18] MEDS: IBUPROFEN 600 MG TABLET (FP) PO PRN (21:48)
[2017-10-18] MEDS: THIAMINE HCL 100 MG TABLET (FP) PO SCH (21:49)
[2017-10-18] MEDS: SERTRALINE HCL 25 MG TABLET (FP) PO SCH (21:49)
[2017-10-18] MEDS: MIRTAZAPINE 15 MG TABLET (FP) PO SCH (21:49)
[2017-10-19] MEDS: BUPRENORPHINE HCL/NALOXONE 12 MG-3 MG SL FILM PACKET SL SCH (06:24)
[2017-10-19] MEDS: NICOTINE POLACRILEX 2 MG GUM BUC PRN (07:39)
[2017-10-19] MEDS: cloNIDine HCL 0.1 MG TABLET PO PRN ×2 (10:07→21:35)
[2017-10-19] MEDS: PRENATAL VITAMINS W/ FOLIC ACID TABLET (FP) PO SCH (10:07)
[2017-10-19] MEDS: SERTRALINE HCL 25 MG TABLET (FP) PO SCH (21:35)
[2017-10-19] MEDS: THIAMINE HCL 100 MG TABLET (FP) PO SCH (21:35)
[2017-10-19] MEDS: MIRTAZAPINE 15 MG TABLET (FP) PO SCH (21:36)
[2017-10-20] MEDS: BUPRENORPHINE HCL/NALOXONE 12 MG-3 MG SL FILM PACKET SL SCH (06:04)
[2017-10-20 06:49] VITALS: BP 101/67; PULSE 74; TEMP 97.7
[2017-10-20] MEDS: NICOTINE POLACRILEX 2 MG GUM BUC PRN ×2 (07:29→09:56)
[2017-10-20] MEDS: PRENATAL VITAMINS W/ FOLIC ACID TABLET (FP) PO SCH (09:53)
[2017-10-20] MEDS: cloNIDine HCL 0.1 MG TABLET PO PRN (09:54)
--- NOTE | 2017-10-20 10:11 | PN ---
Psychiatric Progress Note Vital Signs: Vital Signs Period Temp Pulse Resp BP Sys/Sneed Pulse Ox Last 24 Hr 97.7 F 74-80 16-18 101-106/67-67 Date of Session: 10/20/17 Chief Complaint:: Discharge visit HPI: Patient addressed Opioid dependence comorbid with Substance induced mood disorder. ROS: GERD. Current Medications: Active Medications Generic Name Dose Route Start Last Admin Trade Name Freq PRN Reason Stop Dose Admin Acetaminophen 650 mg 10/05/17 12:25 10/14/17 07:28 Tylenol - PO 650 mg Q4H PRN Administration FEVER OR PAIN Al Hydroxide/Mg Hydroxide 30 ml 10/05/17 12:25 10/16/17 07:40 Mylanta Oral Suspension - PO 30 ml Q6H PRN Administration DYSPEPSIA Buprenorphine/Naloxone 1 each 10/16/17 06:00 10/20/17 06:04 Suboxone 12 Mg-3 Mg Sl Film SL 10/22/17 09:59 1 each DAILY@0600 GABRIELE Administration Bupropion HCl 300 mg 10/06/17 10:00 10/20/17 09:53 Wellbutrin Xl - PO 300 mg DAILY GABRIELE Administration Clonidine 0.1 mg 10/15/17 09:35 10/20/17 09:54 Catapres - PO 0.1 mg Q8H PRN Administration ANXIETY Eucalyptus/Menthol/Phenol/Sorbitol 1 each 10/05/17 12:25 Cepastat Lozenge - MM Q4H PRN SORE THROAT Guaifenesin 10 ml 10/05/17 12:25 Robitussin Dm - PO Q6H PRN COUGH Hydroxyzine Pamoate 50 mg 10/05/17 16:04 10/18/17 21:48 Vistaril - PO 50 mg Q4H PRN Administration ANXIETY Ibuprofen 600 mg 10/06/17 07:56 10/18/17 21:48 Motrin - PO 600 mg Q6H PRN Administration PAIN Loperamide HCl 4 mg 10/05/17 12:25 10/15/17 09:12 Imodium - PO 4 mg Q6H PRN Administration DIARRHEA Magnesium Citrate 300 ml 10/05/17 12:25 Citroma - PO Q48H PRN CONSTIPATION Magnesium Hydroxide 30 ml 10/05/17 12:25 Milk Of Magnesia - PO DAILY PRN CONSTIPATION Mirtazapine 15 mg 10/08/17 22:00 10/19/17 21:36 Remeron - PO 15 mg HS GABRIELE Administration Nicotine Polacrilex 2 mg 10/05/17 12:25 10/20/17 09:56 Nicorette Gum - BUC 2 mg Q2H PRN Administration NICOTINE REPLACEMENT RX Multivit/Folic Acid/Iron 1 tab 10/06/17 10:00 10/20/17 09:53 Vitamins (Sjr) - PO 1 tab DAILY GABRIELE Administration Pseudoephedrine/Triprolidine 1 combo 10/05/17 12:25 Actifed - PO TID PRN NASAL CONGESTION Sertraline HCl 25 mg 10/15/17 22:00 10/19/17 21:35 Zoloft - PO 25 mg HS GABRIELE Administration Thiamine HCl 100 mg 10/05/17 22:00 10/19/17 21:35 Vitamin B1 - PO 100 mg HS GABRIELE Administration Current Side Effect: No Lab tests ordered: No Lab tests reviewed: Yes Provider note:: Patient completed this program today.She has met her treatment goals and will continue to addresasa her issues on outpatient basis at [facility].Patient reports finding that current medications including Wellbutrin 300 mg po am,Remeron 15 mg po hs and Zoloft 25 mg po hs help to cope with depression,anxiety,mood instability.Scripts for 30 days provided. Supportive therapy proivided focusing on relapse prevention. Patient is stable for discharge today. Total face to face time:: 30 Mental Status Exam - Mental Status Exam Alert and Oriented to: Time, Place, Person Cognitive Function: Grossly Intact Patient Appearance: Well Groomed Mood: Euthymic Affect: Mood Congruent Patient Behavior: Cooperative Speech Pattern: Clear Voice Loudness: Normal Thought Process: Goal Oriented Thought Disorder: Not Present Hallucinations: Denies Suicidal Ideation: Denies Homicidal Ideation: Denies Insight/Judgement: Fair Sleep: Fair Appetite: Good Muscle strength/Tone: Normal Gait/Station: Normal Psychiatric Treatment Plan - Problem List (1) Drug-induced mood disorder Current Visit: Yes (2) GERD (gastroesophageal reflux disease) Current Visit: Yes Qualifiers: (3) Nicotine dependence Current Visit: Yes Qualifiers: (4) Opioid dependence Current Visit: Yes
== END 2017-10-20 10:15 | disposition home or self-care (01) | DRG 772 ==
LOC: YASAS 11:40 → Y3E 11:41
PROVIDERS: ADMIT Psychiatry & Neurology Psychiatry; ATTEND Psychiatry & Neurology Psychiatry
PROC: HZ42ZZZ Group Counseling for Substance Abuse Treatment, Cognitive-Behavioral (ICD-10-PCS; principal; 2017-10-05)
DX: F11.20 Opioid dependence, uncomplicated (principal); F17.210 Nicotine dependence, cigarettes, uncomplicated; F19.24 Other psychoactive substance dependence with psychoactive substance-induced mood disorder; K21.9 Gastro-esophageal reflux disease without esophagitis
CPT/HCPCS: 36415; 86803